=== PATIENT | male | born 1980 | race Caucasian/White ===

== ENCOUNTER 2021-08-11 09:07 | Emergency (ER) | payer BC, OTHER ==
[~2021-08-11] VITALS: Ht 185.4 cm; Wt 98.4 kg
--- NOTE | 2021-08-11 09:28 | PHYS DOC ---
Past History Past Medical History: Anxiety Past Surgical History: Other Alcohol Use: None Drug Use: None General Adult EDM: Chief Complaint: LACERATION/AVULSION HPI: HPI: 40 yo M presents the ED with complaints of right third digit laceration sustained at work just prior to arrival stating "It split wide open." States he banged his hand against a metal crate. Reports tetanus is up-to-date due to hip surgery in 2019. Patient is right-hand dominant. Takes no prescribed medications. Review of Systems: Review of Systems: Constitutional: Denies fever or chills Eyes: Denies change in visual acuity HENT: Denies nasal congestion or sore throat or neck pain Respiratory: Denies cough or shortness of breath Cardiovascular: Denies chest pain or edema GI: Denies nausea or vomiting Musculoskeletal: Denies back pain or joint pain Integument: Denies rash or diaphoresis Neurologic: Denies focal weakness or sensory changes Psychiatric: Denies depression or anxiety Allergies: Allergies: Allergies Coded Allergies Type Severity Reaction Last Updated Verified No Known Drug Allergies 07/07/16 No Physical Exam: PE: Constitutional: Well developed, well nourished, no acute distress, non-toxic appearance. HENT: Normocephalic, atraumatic, Eyes: EOMI, conjunctiva normal, no discharge. Neck: Normal range of motion, supple, Cardiovascular: S1/2 present, regular rhythm Lungs & Thorax: Speaking in full sentences, bilateral equal chest rise, no tachypnea or increased work of breathing Skin: Warm, dry, Extremities: no cyanosis, 1cm laceration over dorsal right 3rd proximal phalange (between MCP and PIP), cap refill < 1 second, equal radial pulses, intact radial/median/ulnar nerve sensation, fingers and wrist with full range of motion including flexion, extension, abduction and adduction Neurologic: Alert and oriented X 3, normal motor function, normal sensory function, no focal deficits noted. [] Psychologic: Affect normal, judgement normal, mood normal. [] EKG: EKG: [] Radiology/Procedures: Radiology/Procedures: Signed PATIENT: LUIZA KOENIG ACCOUNT: [id number] : 1980 LOCATION: ER AGE: 40 SEX: M EXAM STATUS: REG ER ORD. PHYSICIAN: FRANCINE DOYLE DO REASON: 3td digit pain, blunt injury PROCEDURE: FINGER(S) RIGHT EXAMINATION: XR FINGER(S)_RIGHT 2+VIEWS. HISTORY: 40 years Male Reason: 3td digit pain, blunt injury / Spl. Instructions: / History: . COMPARISON: None. FINDINGS: No fracture, dislocation or radiopaque foreign body. The joint spaces and articular surfaces appear unremarkable. IMPRESSION: Unremarkable exam. Electronically signed by: Ulises Rizo MD (08/11/2021 9:45 AM) [id number] DICTATED AND SIGNED BY: ULISES RIZO MD DATE: 08/11/21 0945 CC: PCP,NO; FRANCINE DOYLE DO ~ Indication: Right third digit laceration Procedure: The patient was placed in the appropriate position and anesthesia around the laceration site with 1% lidocaine. The area was then micheal irrigated. The laceration was closed with 4-0 Prolene, total of 2 sutures. The wound area was then dressed with triple antibiotic ointment and sterile dressing. Total repaired wound length: 1 cm. Other Items: none, finger and wrist range of motion (flexion, extension, adduction and abduction) intact before and after repair The patient tolerated the procedure . Complications: [COMPLICATIONS]. Heart Score: C/O Chest Pain: No Risk Factors: Risk Factors: DM, Current or recent (<one month) smoker, HTN, HLP, family history of CAD, obesity. Risk Scores: Score 0 - 3: 2.5% MACE over next 6 weeks - Discharge Home Score 4 - 6: 20.3% MACE over next 6 weeks - Admit for Clinical Observation Score 7 - 10: 72.7% MACE over next 6 weeks - Early Invasive Strategies Course & Med Decision Making: Course & Med Decision Making Pertinent Labs and Imaging studies reviewed. (See chart for details) Concern for superficial right finger laceration status post repair. Patient with full range of motion, neurovascularly intact. Will discharge home with wound care instructions, antibiotics and strict ED return precautions for fever, worsening pain, swelling, purulent drainage or any decreased range of motion. X-ray imaging with no fracture/blunt injury. encouraged urgent outpatient follow-up with PMD in 7 to 10 days for suture removal. Life-threatening processes were considered but are low suspicion at this time, given history, physical exam and ED workup. Pt was educated on all prescription medications and adverse effects. All patient's questions were answered and pt was stable at time of discharge. Life/limb-threatening differential includes but is not limited to, infection or rash (including osteomyelitis, necrotizing fasciitis, cellulitis), wound dehiscence, tendon injury, traumatic injury etc I have spoken with the patient and/or caregivers. I explained the patient's condition, diagnoses and treatment plan based on the information available to me at this time. I have answered the patient and/or caregiver's questions and addressed any concerns. The patient and/or caregivers have a good understanding of patient's diagnosis, condition and treatment plan as can be expected at this point. Vital signs have been stable. Patient's condition is stable and appropriate for discharge from the emergency department. Patient will pursue further outpatient evaluation with primary care physician or other designated or consulting physician as outlined in the discharge instructions. The patient and/or caregivers are agreeable to this plan of care and follow-up instructions have been explained in detail. The patient and/or caregivers have received these instructions in written form and have expressed an understanding of the discharge instructions. The patient and/or caregivers are aware that any significant change of condition or worsening of symptoms should prompt immediate return to this or the closest emergency department or call to 532. Gilbert Disclaimer: Gilbert Disclaimer: This electronic medical record was generated, in whole or in part, using a voice recognition dictation system. Departure Departure: Impression: Primary Impression: Laceration of finger of right hand Disposition: 01 HOME / SELF CARE / HOMELESS Condition: STABLE Referrals: PCP,NO (PCP) Follow up with your pcp in 1-2 days or [facility] [phone] OR [facility]-Dr. Layne [phone] Patient Instructions: Laceration Care, Adult Additional Instructions: [facility] FOR DEFIINITIVE MANAGEMENT WITHIN THE NEXT 7 DAYS Appointments may be made with Washington Dunbar MD, Kapil Taylor MD, Jarad Muniz MD or Manuel Langston MD, by calling [phone] EMERGENCY DEPARTMENT GENERAL DISCHARGE INSTRUCTIONS Thank you for coming to [facility] (ED) today and trusting us with you care. We trust that you had a positivie experience in our Emergency Department. If you wish to speak to the department management, you may call the director at [phone]. YOUR FOLLOW UP INSTRUCTIONS ARE FOLLOWS: 1. Do you have a private Doctor? If you do not have a private doctor, please ask for a resource list of physicians or clinics that may be able to assist you with follow up care. 2. The Emergency Physician has interpreted your x-rays. The X-Ray specialist will also review them. If there is a change in the findings, you will be notified in 48 hours when at all possible. 3. A lab test or culture has been done, your results will be reviewed and you will be notified if you need a change in treatment. ADDITIONAL INSTRUCTIONS AND INFORMATION: 1. Your care today has been supervised by a physician who is specially trained in emergency care. Many problems require more than one evaluation for a complete diagnosis and treatment. We recommend that you schedule your follow up appointment as recommended to ensure complete treatment of you illness or injury. If you are unable to obtain follow up care and continue to have a problem, or if your condition worsens, we recommend that you return to the ED. 2. We are not able to safely determine your condition over the phone nor are we able to give sound medical advice over the phone. For these safety reasons, if you call for medical advice we will ask you to come to the ED for further evaluation. 3. If you have any questions regarding these discharge instructions please call the ED at [phone]. SAFETY INFORMATION: In the interest of safety, wellness, and injury prevention; we encourage you to wear your sealbelt, if you smoke; quite smoking, and we encourage family to use a protective helmet for bicycling and other sporting events that present an increased risk for head injury. IF YOUR SYMPTOMS WORSEN OR NEW SYMPTOMS DEVELOP, OR YOU HAVE CONCERNS ABOUT YOUR CONDITION; OR IF YOUR CONDITION WORSENS WHILE YOU ARE WAITING FOR YOUR FOLLOW UP APPOINTMENT; EITHER CONTACT YOUR PRIMARY CARE DOCTOR, THE PHYSICIAN WHOSE NAME AND NUMBER YOU WERE GIVEN, OR RETURN TO THE ED IMMEDIATELY. Scripts Neomycn/Baci Zn/Pmyx Bs/Pramox (Triple Antibioti-Pain Rlf Oint) 28 Gm Oint...g. 28 GM TP TID PRN for PAIN, #1 MISC Prov: FRANCINE DOYLE DO 08/11/21 Cephalexin (KEFLEX) 500 Mg Capsule 1 CAP PO QID for finger laceration for 10 Days, #40 CAP Prov: FRANCINE DOYLE DO 08/11/21 FRANCINE DOYLE DO Aug 11, 2021 09:27
[2021-08-11] MEDS ORDERED: NEOMY/BACITR/POLYMYXIN OINT PACKET. TP ONE (09:45)
[2021-08-11] MEDS ORDERED: LIDOCAINE 1% Multi-Dose 20 ML VIAL. IJ ONE (09:45)
--- NOTE | 2021-08-11 09:48 | RAD ---
EXAMINATION: XR FINGER(S)_RIGHT 2+VIEWS. HISTORY: 40 years Male Reason: 3td digit pain, blunt injury / Spl. Instructions: / History: . COMPARISON: None. FINDINGS: No fracture, dislocation or radiopaque foreign body. The joint spaces and articular surfaces appea r unremarkable. IMPRESSION: Unremarkable exam. Electronically signed by: Brian Rizo MD (08/11/2021 9:45 AM) [id number]
[2021-08-11] MEDS ORDERED: NEOM28OI48 TP (10:33)
[2021-08-11] MEDS ORDERED: CEPH500C PO (10:33)
[2021-08-11 10:40] VITALS: BP 130/84
== END 2021-08-11 10:40 | disposition home or self-care (01) ==
LOC: ER 09:07
DX: S61.212A Laceration without foreign body of right middle finger without damage to nail, initial encounter (principal); W26.8XXA Contact with other sharp object(s), not elsewhere classified, initial encounter; Y93.89 Activity, other specified; Y92.89 Other specified places as the place of occurrence of the external cause; Y99.8 Other external cause status
CPT/HCPCS: 12001; 73140; 99283